=== PATIENT | male | born 1975 | race Caucasian/White ===

== ENCOUNTER 2016-12-25 20:20 | Emergency (ER) ==
[2016-12-25] MEDS ORDERED: DUONEB (A & A) INH ONE (21:51)
--- NOTE | 2016-12-25 21:56 | PROVIDER DOCUMENTATION ---
HPI-Respiratory General <KaitlynnTabathaRafiaZenon ParkerKoko - Last Filed: 12/25/16 21:51> - General Source: patient - History of Present Illness-Resp Quality of Pain: reports: none Severity in ED: reports: mild Onset/Duration: reports: this afternoon Timing: reports: still present Cough Quality/Degree: reports: mild Current Respiratory Medication Therapy: Initiated see nurses note Modifying Factors: improves with: nothing Associated Symptoms: reports: cough, shortness of breath Similar Symptoms Previously?: No Recently seen or treated by another doctor?: No <Lakeisha Argueta - Last Filed: 12/25/16 22:06> - General Chief Complaint: Shortness of Breath Stated Complaint: KNOT ON RIB CAGE,SOB Time Seen by Provider: 12/25/16 21:44 Allergies/Adverse Reactions: Patient Allergies Allergy/AdvReac Type Severity Reaction Status Date / Time No Known Allergies Allergy Verified 12/25/16 20:50 Home Medications: Home Medication List Medication Instructions Recorded Confirmed Last Taken Type Albuterol Sulfate [Albuterol 2 gm IH Q4-6H PRN PRN #1 hfa.aer.ad 12/25/16 Unknown Rx Sulfate Hfa] Codeine/Promethazine [Phenergan 10 ml PO TID PRN PRN #120 ml 12/25/16 Unknown Rx with Codeine] - History of Present Illness-Resp Nature of Presenting Problem: 41 year old M presents to the ED with a cc of shortness of breath and cough with an onset of today. Pt states that he has also noticed a knot to right lower rib cage that he has never had before. (Lakeisha Argueta) Review of Systems - Adult - REVIEW OF SYSTEMS - ADULT Constitutional: denies: chills, fever Eyes: reports: no symptoms reported Ears, Nose, Mouth & Throat: denies: ear pain, throat pain Cardiovascular: denies: chest pain, palpitations Respiratory: reports: cough, shortness of breath Gastrointestinal: denies: abdominal pain, diarrhea, nausea, vomiting Genitourinary: reports: no symptoms reported Musculoskeletal: reports: no symptoms reported Integumentary: reports: no symptoms reported Neurological: reports: no symptoms reported Psychiatric: reports: no symptoms reported Endocrine: reports: no symptoms reported Hematologic/Lymphatic: reports: no symptoms reported Allergic/Immunologic: reports: no symptoms reported All Other Systems: Reviewed and Negative <Lakeisha Argueta - Last Filed: 12/25/16 22:06> Past History - Adult - PAST MEDICAL HISTORY-ADULT Review of Records: reports: Nursing Assessment Review, Medications Reviewed Major Childhood Illnesses: reports: denies history Cardiovascular: reports: denies history Respiratory: reports: denies history Gastrointestinal: reports: denies history Obstetrical/Gynecological: reports: denies history Genitourinary: reports: denies history Musculoskeletal: reports: denies history Neurological: reports: denies history Endocrine/Immune: reports: denies history Other Conditions: reports: denies history - PRIOR SURGERIES/PROCEDURES Surgical/Procedure History: reports: cholecystectomy, orthopedic (extremity) - IMMUNIZATION STATUS Childhood Immunizations: See Nurse Assessment Flu Vaccine: See Nurse Assessment - FAMILY HISTORY Family History: reviewed, not pertinent - SOCIAL HISTORY Smoking: cigarettes, less than 1 pack/day Provider spent 3-5 mins advising pt. on dangers of tobacco.: Discussed manners to quit use, and f/u contacts for add'l counseling. Substance Use: none/never Alcohol Use Frequency: never <Lakeisha Argueta - Last Filed: 12/25/16 22:06> Physical Exam-General - PHYSICAL EXAM-ADULT Initial Vital Signs Reviewed: Yes - CONSTITUTIONAL General Appearance: appears well, alert, no apparent distress - RESPIRATORY Respiratory: chest non-tender, wheezing (rare), other (3x5 soft nontender, freely movable, subqutaneous mass right lower ribs.) - CARDIOVASCULAR Cardiovascular: normal peripheral pulses, regular rate, rhythm, no edema - GASTROINTESTINAL (ABDOMEN) Abdominal Exam: non tender, soft - MUSCULOSKELETAL Extremity: normal inspection - SKIN Integumentary: normal color, normal turgor, warm/dry - PSYCHIATRIC Psych/Mental Status: normal mood/affect, normal thought content, normal thought process, oriented x 3 <Lakeisha Argueta - Last Filed: 12/25/16 22:06> Progress <Zenon Caldwell - Last Filed: 12/25/16 21:51> - XRAY 1 XRAY Study: Chest Impression: Normal XRAY Interpretation: NAD: Dr. Caldwell <Lakeisha Argueta - Last Filed: 12/25/16 22:06> - PLAN OF CARE/RESULTS Progress/Plan/Lab Results: plan of care: imaging, breathing treatments Orders Category Date Time Status CHEST-2 VIEWS [RAD] Stat Exams 12/25/16 21:18 Taken Albuterol 2.5MG/Ipratrop 0.5MG [Duoneb (A & A)] Med 12/25/16 21:51 Discontinued 3 ml INH NOW ONE Aerosol Treatments Routine Oth 12/25/16 21:51 Completed Aerosol Treatments Stat Oth 12/25/16 21:51 Completed Vital Signs - 24 hr 12/25/16 12/25/16 20:44 22:00 Temperature 97.4 F L Pulse Rate 101 H 88 Respiratory 20 18 Rate Blood Pressure 141/84 O2 Sat by Pulse 97 96 Oximetry Pt given results and will be d/c home w/o rx to follow up with PCP. Pt verbally understood instructions. PT remained clinically stable throughout the course of the ED stay and will return if symptoms worsen. (Lakeisha Argueta) Departure - Departure Time of Disposition Order: 21:52 Certified Medical Emergency: Emergent <Zenon Caldwell - Last Filed: 12/25/16 21:51> <Lakeisha Argueta - Last Filed: 12/25/16 22:06> - Departure DIAGNOSIS: Lipoma Qualifiers: Lipoma location: trunk Qualified Code(s): D17.1 - Benign lipomatous neoplasm of skin and subcutaneous tissue of trunk Upper respiratory infection Qualifiers: URI type: unspecified viral URI Qualified Code(s): J06.9 - Acute upper respiratory infection, unspecified Additional Instructions: ED Follow Up Instructions: You have been treated by a care provider in the Emergency Department. These instructions are being provided to you so you can have an understanding of how to care for yourself upon discharge. Upon discharge from the Emergency Department, you are responsible for making arrangements for follow-up care by a physician of your choice. Take all prescribed medications as directed. Return to the Emergency Department immediately for any new or worsening symptoms. You may call the Physician Referral phone number at [phone] to obtain a list of Physicians who are taking new patients. Prescriptions: Albuterol Sulfate [Albuterol Sulfate Hfa] 2 gm IH Q4-6H PRN PRN #1 hfa.aer.ad PRN Reason: Wheezing Codeine/Promethazine [Phenergan with Codeine] 10 ml PO TID PRN PRN #120 ml PRN Reason: Cough Referrals: None,PCP [Primary Care Provider] - Attestation - Scribe Verification/Attestation Scribe:: Lakeisha Argueta Acting as Scribe for:: Zenon Caldwell Scribe documention review:: This chart was documented by a scribe and accurately reflects the service the provider performed and the decisions made by the provider. <Lakeisha Argueta - Last Filed: 12/25/16 22:06> Physician Attestation - Physician Attestation I, the provider, attest to the following statement:: Zenon Caldwell Physician documentation Attestation:: This documentation recorded by the scribe accurately reflects the service I personally performed and the decisions made by me. <Lakeisha Argueta - Last Filed: 12/25/16 22:06>
--- NOTE | 2016-12-25 21:58 | PROVIDER DOCUMENTATION ---
HPI-Respiratory General - General Chief Complaint: Shortness of Breath Stated Complaint: KNOT ON RIB CAGE,SOB Time Seen by Provider: 12/25/16 21:44 Source: patient Allergies/Adverse Reactions: Patient Allergies Allergy/AdvReac Type Severity Reaction Status Date / Time No Known Allergies Allergy Verified 12/25/16 20:50 Home Medications: Home Medication List Medication Instructions Recorded Confirmed Last Taken Type Albuterol Sulfate [Albuterol 2 gm IH Q4-6H PRN PRN #1 hfa.aer.ad 12/25/16 Unknown Rx Sulfate Hfa] Codeine/Promethazine [Phenergan 10 ml PO TID PRN PRN #120 ml 12/25/16 Unknown Rx with Codeine] - History of Present Illness-Resp Nature of Presenting Problem: 41 year old M presents to the ED with a cc of shortness of breath and cough with an onset of today. Pt states that he has also noticed a knot to right lower rib cage that he has never had before. Severity in ED: reports: mild Onset/Duration: reports: this afternoon Timing: reports: still present Cough Quality/Degree: reports: mild Current Respiratory Medication Therapy: Initiated see nurses note Associated Symptoms: reports: cough, shortness of breath Similar Symptoms Previously?: No Recently seen or treated by another doctor?: No Review of Systems - Adult - REVIEW OF SYSTEMS - ADULT Constitutional: denies: chills, fever Eyes: reports: no symptoms reported Ears, Nose, Mouth & Throat: reports: no symptoms reported Cardiovascular: denies: chest pain, palpitations Respiratory: reports: cough, shortness of breath Gastrointestinal: denies: abdominal pain, diarrhea, nausea, vomiting Genitourinary: reports: no symptoms reported Musculoskeletal: reports: no symptoms reported Integumentary: reports: no symptoms reported Neurological: reports: no symptoms reported Psychiatric: reports: no symptoms reported Endocrine: reports: no symptoms reported Hematologic/Lymphatic: reports: no symptoms reported Allergic/Immunologic: reports: no symptoms reported All Other Systems: Reviewed and Negative Past History - Adult - PAST MEDICAL HISTORY-ADULT Review of Records: reports: Nursing Assessment Review, Medications Reviewed Major Childhood Illnesses: reports: denies history Cardiovascular: reports: denies history Respiratory: reports: denies history Gastrointestinal: reports: denies history Obstetrical/Gynecological: reports: denies history Genitourinary: reports: denies history Musculoskeletal: reports: denies history Neurological: reports: denies history Psychiatric: reports: denies history Endocrine/Immune: reports: denies history Other Conditions: reports: denies history - PRIOR SURGERIES/PROCEDURES Surgical/Procedure History: reports: cholecystectomy, orthopedic (extremity) - IMMUNIZATION STATUS Childhood Immunizations: See Nurse Assessment Flu Vaccine: See Nurse Assessment - SOCIAL HISTORY Smoking: cigarettes, less than 1 pack/day Provider spent 3-5 mins advising pt. on dangers of tobacco.: Discussed manners to quit use, and f/u contacts for add'l counseling. Substance Use: none/never Alcohol Use Frequency: never Physical Exam-General - RESPIRATORY Respiratory: wheezing (rare), other (3x5 soft nontender, freely movable, subqutaneous mass right lower ribs.) - CARDIOVASCULAR Cardiovascular: normal peripheral pulses, regular rate, rhythm, no edema - GASTROINTESTINAL (ABDOMEN) Abdominal Exam: non tender, soft - MUSCULOSKELETAL Extremity: normal inspection - SKIN Integumentary: normal color, normal turgor, warm/dry - PSYCHIATRIC Psych/Mental Status: normal mood/affect, normal thought content, normal thought process, oriented x 3 Departure - Departure DIAGNOSIS: Lipoma Qualifiers: Lipoma location: trunk Qualified Code(s): D17.1 - Benign lipomatous neoplasm of skin and subcutaneous tissue of trunk Upper respiratory infection Qualifiers: URI type: unspecified viral URI Qualified Code(s): J06.9 - Acute upper respiratory infection, unspecified Additional Instructions: ED Follow Up Instructions: You have been treated by a care provider in the Emergency Department. These instructions are being provided to you so you can have an understanding of how to care for yourself upon discharge. Upon discharge from the Emergency Department, you are responsible for making arrangements for follow-up care by a physician of your choice. Take all prescribed medications as directed. Return to the Emergency Department immediately for any new or worsening symptoms. You may call the Physician Referral phone number at [phone] to obtain a list of Physicians who are taking new patients. Prescriptions: Albuterol Sulfate [Albuterol Sulfate Hfa] 2 gm IH Q4-6H PRN PRN #1 hfa.aer.ad PRN Reason: Wheezing Codeine/Promethazine [Phenergan with Codeine] 10 ml PO TID PRN PRN #120 ml PRN Reason: Cough Referrals: None,PCP [Primary Care Provider] - Attestation - Scribe Verification/Attestation Scribe:: Lakeisha Argueta Acting as Scribe for:: Zenon Caldwell Scribpamela documention review:: This chart was documented by a scribe and accurately reflects the service the provider performed and the decisions made by the provider. Physician Attestation - Physician Attestation I, the provider, attest to the following statement:: Zenon Caldwell Physician documentation Attestation:: This documentation recorded by the scribe accurately reflects the service I personally performed and the decisions made by me.
[2016-12-25 22:18] VITALS: BP 139/88
--- NOTE | 2016-12-26 10:04 | Diag Imaging Result Document ---
PROCEDURE NAME: CHEST-2 VIEWS - 12/25/2016 CHEST TWO VIEWS: INDICATION: Shortness of breath. FINDINGS: The heart size is within normal limits. The pulmonary vasculature is not congested. No infiltrate or effusion is identified. IMPRESSION: No acute cardiopulmonary abnormality.
== END 2016-12-25 22:18 | disposition home or self-care (01) ==
LOC: P.ED 20:20
DX: J06.9 Acute upper respiratory infection, unspecified (principal); D17.1 Benign lipomatous neoplasm of skin and subcutaneous tissue of trunk; R06.02 Shortness of breath; R05 Cough; R22.2 Localized swelling, mass and lump, trunk; R06.2 Wheezing; F17.210 Nicotine dependence, cigarettes, uncomplicated; Z71.6 Tobacco abuse counseling
CPT/HCPCS: 71020; 94640; 99282